=== PATIENT | female | born 1960 | race African-American/Black ===

== ENCOUNTER 2022-12-24 19:03 | Emergency (ER) | payer OTHER ==
[~2022-12-24] VITALS: Ht 170.2 cm; Wt 102.0 kg
[2022-12-24 19:20] VITALS: BP 130/81; PULSE 84; RESP 16; TEMP 97.9; O2SAT 95
== END 2022-12-24 20:21 | disposition left against medical advice (07) ==
LOC: ER 19:03
DX: Z53.21 Procedure and treatment not carried out due to patient leaving prior to being seen by health care provider (principal)
CPT/HCPCS: 99281